=== PATIENT | male | born 1970 | race Two or more races ===

== ENCOUNTER 2023-02-09 12:14 | Emergency (ER) | payer OTHER ==
[~2023-02-09] VITALS: Ht 180.3 cm; Wt 142.9 kg
[2023-02-09] MEDS ORDERED: KAPSPARGO SPRIN25 MG PO (12:30)
[2023-02-09] MEDS ORDERED: ZOLOFT50 MG PO (12:31)
[2023-02-09] MEDS ORDERED: NORVASC10 MG PO (12:31)
[2023-02-09] MEDS ORDERED: LIPITOR20 MG PO (12:31)
[2023-02-09] MEDS ORDERED: CHLORTHALIDONE25 MG PO (12:31)
[2023-02-09] MEDS ORDERED: ALLOPURINOL300 MG PO (12:32)
[2023-02-09] MEDS ORDERED: ALDACTONE25 MG PO (12:32)
[2023-02-09 12:38] LABS: BASOPHILS 0.5 % (0-2); EOSINOPHILS 0.7 % (0-6); HEMATOCRIT 45.1 % (35.0-50.0); HEMOGLOBIN 15.4 g/dL (12.0-18.0); LYMPHOCYTES 14.9 % (24-44); MCH 28.9 (27-36); MCHC 34.1 g/dl (30-36); MCV 84.5 fl (81-99); NEUTROPHILS 76.9 % (39-80); PLATELET COUNT 363 K/uL (140-440); RBC 5.33 M/ul (4.3-5.7); RDW 14.7 (10.5-15.0)
[2023-02-09 12:56] LABS: ALBUMIN 3.8 g/dL (3.4-5.0); ALBUMIN/GLOBULIN RATIO 0.9 (1.1-2.4); ANION GAP 16.9 (7-21); BILIRUBIN, TOTAL 0.4 ng/dL (0.2-1.0); BUN/CREATININE RATIO 13.15 (6.0-28.6); CALCIUM 9.2 mg/dL (8.5-10.1); CREATININE, SERUM 1.52 mg/dL (0.70-1.30); MAGNESIUM 1.3 mg/dL (1.8-2.4); POTASSIUM 2.9 mmol/L (3.5-5.1)
[2023-02-09 15:00] VITALS: BP 150/105
--- NOTE | 2023-02-10 06:00 | EKG ---
[facility] [address] [facility] [place] [address] Signed Normal sinus rhythm Right bundle branch block Left anterior fascicular block Bifascicular block Abnormal ECG No previous ECGs available Confirmed by SATHISH MOREL MD ([id number]) on 02/10/2023 6:00:32 AM Electronically Signed By: SATHISH MOREL 02/10/23 0600 PATIENT NAME: JOSE SIEGEL Electrocardiogram DATE OF : 66 PHYSICIAN: SATHISH MOREL REPORT #: [id number] REPORT IS CONFIDENTIAL AND NOT TO BE RELEASED WITHOUT AUTHORIZATION
== END 2023-02-09 15:00 | disposition home or self-care (01) ==
LOC: ED 12:14 → EDSEX 12:15 → ED 12:15
PROVIDERS: Emergency Medicine
DX: E87.6 Hypokalemia (principal); E83.42 Hypomagnesemia; R07.2 Precordial pain; I10 Essential (primary) hypertension; Z79.899 Other long term (current) drug therapy
CPT/HCPCS: 36415; 71045; 80053; 83735; 84484; 85025; 93005; 93010; 96365; 99285-25; A9270; J3475